=== PATIENT | female | born 1975 | race Hispanic/Latino ===

== ENCOUNTER 2019-03-01 13:14 | Outpatient (CLI) | payer BC ==
--- NOTE | 2019-03-01 14:28 | MMO ---
Bilateral MAMMO Bilat Diag DDI+KATI. CLINICAL HISTORY: Patient is 44 years old and is seen for diagnostic exam and palpable abnormality in the left breast. The patient has no family history of breast cancer. The patient has no personal history of cancer. The patient has a history of bilateral Implants - benign. VIEWS: The views performed were: bilateral craniocaudal with tomosynthesis; bilateral mediolateral oblique with tomosynthesis; bilateral mediolateral; bilateral Implant displaced; and bilateral Implant displaced with tomosynthesis. FILMS COMPARED: The present examination has been compared to prior imaging studies performed at [facility] on 05/02/2010 and 03/01/2019. MAMMOGRAM FINDINGS: There are scattered fibroglandular densities. There is an irregular mass with spiculated margins and associated punctate calcifications seen in the upper-outer region of the left breast. In the right breast, there are no suspicious masses, calcifications or areas of architectural distortion. IMPRESSION: MASS IN THE LEFT BREAST IS SUSPICIOUS. AN ULTRASOUND-GUIDED BREAST BIOPSY IS RECOMMENDED. THE RESULTS OF THIS EXAM WERE SENT TO THE PATIENT. ACR BI-RADS Category 4 - Suspicious abnormality - biopsy should be considered MAMMOGRAPHY NOTE: 1. A negative mammogram report should not delay a biopsy if a dominant of clinically suspicious mass is present. 2. Approximately 10% to 15% of breast cancers are not detected by mammography. 3. Adenosis and dense breasts may obscure an underlying neoplasm.
--- NOTE | 2019-03-01 15:41 | ULT ---
BILATERAL BREAST ULTRASOUND: 03/01/19 COMPARISON: Mammogram of 03/01/19, 05/02/10. HISTORY: Palpable mass at the 2 o'clock position of the left breast. Palpable area of pain in the subareolar r egion of the right breast. TECHNIQUE: Multiplanar larsen scale and color Doppler images were obtained in a bilateral breast ultrasound. FINDINGS: In the 2 o'clock position of the left breast approximately 5 cm from the nipple, there is a spiculate d hypoechoic region of architectural distortion measuring 0.7 cm in greatest dimension. This does not demonstrate significant shadowing but likely corresponds to the mammographic abnormality. In the right breast, no abnormality is seen at the area of pain and palpable abnormality in the subar eolar region. IMPRESSION: Spiculated hypoechoic region of architectural distortion in the left breast. BI-RADS 4: Suspicious Ab normality - Biopsy Should Be Considered An ultrasound guided biopsy is recommended. This is discussed with the patient and her daughter shayne gallego provided translation at the time of the ultrasound. POS: KRISTEN
== END 2019-03-01 13:15 | disposition home or self-care (01) ==
LOC: BICMAMMO 13:14
PROVIDERS: ATTEND Advanced Practice Midwife
DX: N63.0 Unspecified lump in unspecified breast (principal); N64.89 Other specified disorders of breast; Z98.82 Breast implant status
CPT/HCPCS: 77066; G0279

== ENCOUNTER → 2019-03-09 | Day surgery (SDC) | payer BC ==
--- NOTE | 2019-03-09 14:14 | MMO ---
Left Breast MAMMO Unilat Diag DDI LT. CLINICAL HISTORY: Patient is 44 years old and is seen for breast biopsy. The patient has no family history of breast cancer. The patient has no personal history of cancer. The patient has a history of bilateral Implants - benign. VIEWS: The views performed were: left craniocaudal and left mediolateral oblique. FILMS COMPARED: The present examination has been compared to prior imaging studies performed at [facility] on 05/02/2010 and 03/01/2019. MAMMOGRAM FINDINGS: There are scattered fibroglandular densities. IMPRESSION: FINDING IN THE LEFT BREAST IS CONFIRMED UTILIZING POST PROCEDURE MAMMOGRAM. BX CLIP UPPER OUTER LEFT BREAST THE RESULTS OF THIS EXAM WERE SENT TO THE PATIENT. MAMMOGRAPHY NOTE: 1. A negative mammogram report should not delay a biopsy if a dominant of clinically suspicious mass is present. 2. Approximately 10% to 15% of breast cancers are not detected by mammography. 3. Adenosis and dense breasts may obscure an underlying neoplasm.
--- NOTE | 2019-03-09 16:23 | ULT ---
Exam: LEFT BREAST ULTRASOUND WITH ULTRASOUND GUIDANCE 03/09/19 HISTORY: Architectural distortion and irregular shadowing mass in the left breast. COMPARISON: 03/01/19. FINDINGS: Successful ultrasound guided biopsy of a spiculated shadowing mass in the left breast, at the 2 o'daphnie ck position. A total of three 14 gauge core biopsy samples were obtained. Lesion was placed directly in formalin. There are no immediate or postprocedure complications. Post biopsy mammogram is performe d. Clip position is adjacent to the region of interest. TECHNIQUE: Consent obtained to perform an ultrasound guided biopsy of the left breast. Using a lens engraver, the p atient's questions were answered and informed consent was obtained. The skin was prepped and draped in the sterile fashion. 1% lidocaine, buffered with sodium bicarbonate was used for local anesthesia . Under ultrasound guidance, three 14 gauge core biopsy samples were obtained and placed directly in to formalin. Post biopsy clip was placed. No immediate or postprocedure complication. Post biopsy ma mmogram was performed. IMPRESSION: Successful left breast biopsy with ultrasound guidance. Final pathologic diagnosis pending. POS: OFF
== END ==
LOC: BICULT 12:51
PROVIDERS: ATTEND Advanced Practice Midwife
PROC: 0H9U3ZX Drainage of Left Breast, Percutaneous Approach, Diagnostic (ICD-10-PCS; principal; 2019-03-09)
DX: C50.412 Malignant neoplasm of upper-outer quadrant of left female breast (principal); Z17.0 Estrogen receptor positive status [ER+]
CPT/HCPCS: 19083; 88305; 88341; 88342; 88360

== ENCOUNTER 2019-03-20 13:37 | Outpatient (CLI) | payer BC | END 2019-03-20 13:38 | disposition home or self-care (01) | LOC: ULT 13:37 | PROVIDERS: ATTEND Internal Medicine Hematology & Oncology | DX: Z51.11 Encounter for antineoplastic chemotherapy (principal); C50.412 Malignant neoplasm of upper-outer quadrant of left female breast; I08.1 Rheumatic disorders of both mitral and tricuspid valves; Z79.899 Other long term (current) drug therapy | CPT/HCPCS: 93306 ==

== ENCOUNTER 2019-05-05 13:05 | Emergency (ER) | payer BC ==
[2019-05-05 13:32] LABS: #Basophils 0.1 thou/uL (0.0-0.2); #Eosinphils 0.5 thou/uL (0.0-0.7); #Lymphocytes 1.9 thou/uL (1.20-3.40); #Monocytes 0.5 thou/uL (0.11-0.59); #Neutrophils 4.3 thou/uL (1.40-6.50); %Basophils 0.9 % (0.0-1.0); %Eosinophils 7.3 % (0.0-10.0); %Lymphocytes 26.5 % (21.0-51.0); %Monocytes 6.9 % (0.0-10.0); %Neutrophils 58.4 % (42.0-75.0); Hemoglobin 12.5 g/dL (12.0-16.0); Mean Corpuscular HGB CONC 33.5 g/dL (32.0-36.0); Mean Corpuscular Volume 86.7 fL (78.0-98.0); Mean Platelet Volume 6.4 fL (7.4-10.4); Platelet Count 391 thou/uL (130-400); RBC Distribution Width 12.5 % (11.5-14.5); Red Blood Cell (RBC) Count 4.31 mill/uL (4.20-5.40); White Blood Cell (WBC) Count 7.3 thou/uL (4.8-10.8)
[2019-05-05 13:52] LABS: ALT (SGPT) 16 U/L (8-55); AST (SGOT) 16 U/L (5-34); Albumin 3.8 g/dL (3.5-5.0); Alkaline Phosphatase 67 U/L (40-150); Anion Gap 13 mmol/L (10-20); BUN (Urea Nitrogen) 13 mg/dL (7.0-18.7); Bilirubin, Total 0.3 mg/dL (0.2-1.2); Calc. Creatinine Clearance 0 mL/min (70-130); Calcium 9.7 mg/dL (7.8-10.44); Carbon Dioxide 26 mmol/L (22-29); Chloride 103 mmol/L (98-107); Estimated GFR-MDRD Greater than 90; Globulin 3.3 g/dL (2.4-3.5); Glucose 115 mg/dL (70-105); Potassium 3.9 mmol/L (3.5-5.1); Protein, Total 7.1 g/dL (6.0-8.3); Sodium 138 mmol/L (136-145)
--- NOTE | 2019-05-05 14:28 | ULT ---
US Breast Limited Lt History: Pain Comparison: Ultrasound February 2019 Findings: In the left breast implant cavity is a large hematoma involving the entirety of the cavity measuring up to 8 cm. The right breast was also interrogated for comparison with a normal-appearing postsurgical seroma. Impression: Large implant cavity breast hematoma. Code CR: Dr. Lambert BI-RADS 6 -- known biopsy proven malignancy
[2019-05-05] MEDS ORDERED: Morphine 4 MG/ML VIAL ONE (15:24)
[2019-05-05] MEDS ORDERED: Ondansetron PF 4 MG/2 ML Vial ONE (16:24)
[2019-05-05] MEDS ORDERED: HYDROcodone/Acetaminophen 10/325 mg Tablet ONE (18:14)
== END 2019-05-05 18:19 | disposition designated cancer center or children's hospital (05) ==
LOC: ERS 13:05
DX: L76.32 Postprocedural hematoma of skin and subcutaneous tissue following other procedure (principal)
CPT/HCPCS: 36415; 80053; 85025; 96361; 96374; 96375; J2270; J2405

== ENCOUNTER 2020-03-27 10:46 | Emergency (ER) | payer BC, OTHER ==
[2020-03-28 12:12] LABS: SARS-CoV-2 MS2 Positive; SARS-CoV-2 N Gene Negative; SARS-CoV-2 S Gene Negative; SARS-CoV-2 orf1ab Negative
== END 2020-03-27 11:08 | disposition home or self-care (01) ==
LOC: ERS 10:46
DX: R51 Headache (principal); Z20.828 Contact with and (suspected) exposure to other viral communicable diseases
CPT/HCPCS: 87635; 99284; U0003